=== PATIENT | male | born 1970 | race Caucasian/White ===

== ENCOUNTER 2016-10-10 06:03 | Inpatient (IN) | payer BC ==
--- NOTE | ~2016-10-10 | OP ---
Record Of Operation [facility] [address] [place]. [address] NAME: LINDY MOREIRA : 70 STATUS : ADM Mark PAT#: [id number] AGE: 46 ADM/REG DATE : 10/10/16 MR#: [id number] REPORT SERV DATE: 10/11/16 DICTATED BY: ADRIEL ABAD DATE: 10/11/16 REPORT STATUS : Draft TRANSCRIBED BY: MODL DATE: 10/11/16 DATE OF PROCEDURE: 10/10/2016 PROCEDURE: Pericardial drain insertion. INDICATION: Hypotension with early cardiac tamponade physiology on echocardiogram. PROCEDURE IN DETAIL: The patient was brought to the Cardiac Catheterization Lab in a fasting state. This was done urgently secondary to the patient's impending hemodynamic compromise. However, at the time of the procedure, he was hemodynamically stable. He was prepared in the usual fashion on the Cardiac Cath Table. The Anesthesia Service was present to provide monitored anesthesia care. Echocardiography was brought to the bedside. The subxiphoid region of the chest was thoroughly cleaned and then sterilely draped in the usual fashion. Lidocaine was used for local anesthesia. A small gelacio was made in the skin and then a needle was used to gain pericardial access caudally. A pericardial drain was then inserted using modified Seldinger technique under echocardiographic and fluoroscopic guidance. Great care was observed to make sure the wire was in the pericardium and not the right ventricle or some other vascular structure. Approximately 350 mL of dark blood was obtained after the drain was placed. The pericardial effusion diminished under real-time echocardiography. The patient's vital signs stabilized. The drain was secured with a single suture to the skin. It was then dressed in the usual fashion. CONCLUSION: Successful pericardial drain placement. [facility]/KINJAL Adriel Abad M.D. / [id number] CC: Adriel Abad M.D.
--- NOTE | ~2016-10-10 | CN ---
Consultation Report [facility] [address] [place]. [address] NAME: LINDY MOREIRA : 70 STATUS : ADM Mark PAT#: [id number] AGE: 46 ADM/REG DATE : 10/10/16 MR#: [id number] REPORT SERV DATE: 10/11/16 DICTATED BY: AVNI LUNA DATE: 10/10/16 REPORT STATUS : Draft TRANSCRIBED BY: MODL DATE: 10/10/16 NEPHROLOGY CONSULTATION DATE OF CONSULTATION: 10/10/2016 CHIEF COMPLAINT: Acute kidney insufficiency and hyperkalemia. HISTORY OF PRESENT ILLNESS: The patient is a 46-year-old white male with significant past medical history of PAF, hypertension, developed hypotension status post EPA. Echocardiogram showed pericardial effusion with early onset cardiac tamponade. He had a pressures dropped systolically 50s to 70s. Pericardial drain was placed. Blood was removed. He was given , systolic blood pressure down to 130s. Creatinine at baseline at the procedure was 1.17 increased to 1.84. Urine output is increasing with improving blood pressure and volume resuscitation. Creatinine is 1.17 to 1.84. PAST MEDICAL HISTORY/PAST SURGICAL HISTORY: As noted above. SOCIAL HISTORY: No recreational drugs or alcohol. FAMILY MEDICAL HISTORY: No known kidney disease. REVIEW OF SYSTEMS: Negative, otherwise stated in HPI. ALLERGIES: NO KNOWN DRUG ALLERGIES. CURRENT MEDICATIONS: Vitamin D, Rythmol, Prinivil, and Tylenol. PHYSICAL EXAMINATION: VITAL SIGNS: Systolic blood pressures in the 50s and 70s currently in the 130s, temperature is 97.7, pulse is 68. O2 sats 97% on 2 L nasal cannula oxygen. GENERAL: No apparent distress. Lying in bed, comfortably. SKIN: No petechiae or purpura. NECK: No JVP. Trachea is midline. CARDIOVASCULAR: Regular rate and rhythm. No gallops, rubs, or murmurs. RESPIRATORY: Clear to auscultation bilaterally. ABDOMEN: Soft, nontender, nondistended. Positive bowel sounds. EXTREMITIES: No peripheral edema. LABORATORY AND X-RAY DATA: Sodium is 144, potassium 5.4, chloride is 113, BUN is 17, creatinine is 1.84. Glucose is 108, white blood cell count 11.4, hemoglobin is 12.6, platelets are 204. Echocardiogram as mentioned in the HPI. Consultation Report [place] [id number] [place]. [facility] [address] NAME: LINDY MOREIRA : 70 STATUS : ADM Mark PAT#: [id number] AGE: 46 ADM/REG DATE : 10/10/16 MR#: [id number] REPORT SERV DATE: 10/11/16 DICTATED BY: AVNI LUNA DATE: 10/10/16 REPORT STATUS : Draft TRANSCRIBED BY: MODL DATE: 10/10/16 ASSESSMENT: 1. Atrial fibrillation status post EPA. 2. Pericardial effusion with hypotension-cardiac tamponade status post atrial fibrillation status post EPA. 3. Acute kidney insufficiency secondary to prerenal disease in setting of atrial fibrillation status post EPA and pericardial effusion with hypotension-cardiac tamponade status post atrial fibrillation status post EPA. 4. Mild hyperkalemia. PLAN: 1. IV fluids. 2. Martínez catheter. 3. Labs. 4. IV calcium. 5. Updated family at bedside. 6. Re-evaluate in a.mDebra MALCOLMG/MODL Avni Luna M.D. / [id number] CC: Adriel Abad M.D.
[~2016-10-10 06:03] MED LIST: ELIQUIS 5 MG TAB5 MG PO; PRIN20 PO; RYTHMOL SR425 MG PO; VITD PO; ZYRTEC ALLGY10 MG PO
[2016-10-10 06:42] LABS: BASOPHILS 0.6 %; BASOPHILS ABSOLUTE 0.04 10/3/uL (0.0-0.16); EOSINOPHILS ABSOLUTE 0.32 10/3/uL (0.0-0.53); HEMATOCRIT 39.7 % (40.0-51.0); HEMOGLOBIN 13.9 g/dL (13.6-17.8); IMMATURE GRANULOCYTES 0.5 %; IMMATURE GRANULOCYTES ABSOLUTE 0.03 10/3/uL (0.0-0.11); LYMPHOCYTES 24.9 %; LYMPHOCYTES ABSOLUTE 1.58 10/3/uL (0.67-4.30); MEAN CORPUSCULAR VOLUME 88.4 fL (80-100); MEAN PLATELET VOLUME 10.3 fL (9.2-13.0); MONOCYTES 12.9 %; MONOCYTES ABSOLUTE 0.82 10/3/uL (0.21-1.20); NEUTROPHILS 56.1 %; NEUTROPHILS ABSOLUTE 3.55 10/3/uL (2.02-8.40); PLATELET COUNT 208 10/3/uL (150-400); RBC DISTRIBUTION WIDTH 12.7 % (12.0-16.0); RED CELL COUNT 4.49 10/6/uL (4.7-6.1); WHITE BLOOD CELLS 6.3 10/3/uL (4.5-10.5)
[2016-10-10 06:43] LABS: MANUAL DIFF NO %
[2016-10-10 06:53] LABS: BUN (BLOOD UREA NITROGEN) 18 MG/DL (6-23); CALCIUM, SERUM 8.7 MG/DL (8.5-10.4); CHLORIDE, SERUM 106 MMOL/L (96-112); CO2 (CARBON DIOXIDE) 29 MMOL/L (24-34); CREATININE 1.17 MG/DL (0.70-1.30); GFR AFRICAN AMERICAN 86 ML/MIN (>=60); GFR NON AFRICAN AMERICAN 74 ML/MIN (>=60); GLUCOSE, SERUM 101 MG/DL (60-99); POTASSIUM, SERUM 4.3 MMOL/L (3.5-5.3); SODIUM, SERUM 143 MMOL/L (135-148)
[2016-10-10 12:39] LABS: BASOPHILS 0.2 %; BASOPHILS ABSOLUTE 0.02 10/3/uL (0.0-0.16); EOSINOPHILS 0.9 %; HEMOGLOBIN 12.6 g/dL (13.6-17.8); IMMATURE GRANULOCYTES 0.4 %; IMMATURE GRANULOCYTES ABSOLUTE 0.04 10/3/uL (0.0-0.11); LYMPHOCYTES 8.8 %; MANUAL DIFF NO %; MEAN CORPUS HGB CONC 34.1 g/dL (32.0-36.0); MEAN CORPUSCULAR HEMOGLOB 30.6 pg (26.0-34.0); MEAN CORPUSCULAR VOLUME 89.8 fL (80-100); MONOCYTES 4.9 %; MONOCYTES ABSOLUTE 0.56 10/3/uL (0.21-1.20); NEUTROPHILS 84.8 %; NEUTROPHILS ABSOLUTE 9.63 10/3/uL (2.02-8.40); PLATELET COUNT 204 10/3/uL (150-400); RBC DISTRIBUTION WIDTH 12.9 % (12.0-16.0); RED CELL COUNT 4.12 10/6/uL (4.7-6.1); WHITE BLOOD CELLS 11.4 10/3/uL (4.5-10.5)
[2016-10-10 12:47] LABS: PARTIAL THROMBO TIME 44.6 SEC (22.5-37.2)
[2016-10-10 12:51] LABS: BUN (BLOOD UREA NITROGEN) 15 MG/DL (6-23); CHLORIDE, SERUM 107 MMOL/L (96-112)
[2016-10-10 12:53] LABS: CALCIUM, SERUM 7.5 MG/DL (8.5-10.4); CO2 (CARBON DIOXIDE) 24 MMOL/L (24-34); CREATININE 1.74 MG/DL (0.70-1.30); GFR AFRICAN AMERICAN 53 ML/MIN (>=60); GFR NON AFRICAN AMERICAN 46 ML/MIN (>=60); GLUCOSE, SERUM 219 MG/DL (60-99); POTASSIUM, SERUM 6.1 MMOL/L (3.5-5.3); SODIUM, SERUM 136 MMOL/L (135-148)
[2016-10-10 15:29] LABS: ALLENS TEST Pos; BE (BASE EXCESS) -8.1 MEQ/L (0 +/- 2.5); CARBOXYHEMOGLOBIN 0.3 % (0-3); DEVICE NRB; HCO3 (ACTUAL BICARBONATE) 18.5 MEQ/L (23-27); HEMOBLOGIN CONTENT 13.6 G/DL (14-18); INSTRUMENT SERIAL # 35151; METHEMOGLOBIN 0.7 % (0-3); O2 CONTENT 17.7 VOL% (18-24); OPERATOR ID 35798; PCO2 (CO2 TENSION) 42 MMHG (35-45); PO2 (O2 TENSION) 83 MMHG (79-93); SAMPLE Arterial; pH 7.26 (7.37-7.43)
[2016-10-10 16:06] LABS: BUN (BLOOD UREA NITROGEN) 17 MG/DL (6-23); CALCIUM, SERUM 7.5 MG/DL (8.5-10.4); CHLORIDE, SERUM 113 MMOL/L (96-112); CO2 (CARBON DIOXIDE) 27 MMOL/L (24-34); CREATININE 1.84 MG/DL (0.70-1.30); GFR AFRICAN AMERICAN 50 ML/MIN (>=60); GFR NON AFRICAN AMERICAN 43 ML/MIN (>=60); POTASSIUM, SERUM 5.4 MMOL/L (3.5-5.3)
[2016-10-10 16:07] LABS: GLUCOSE, SERUM 108 MG/DL (60-99); SODIUM, SERUM 144 MMOL/L (135-148)
[2016-10-10 21:18] LABS: ALBUMIN 2.3 G/DL (3.5-5.0); CHLORIDE, SERUM 119 MMOL/L (96-112); GLUCOSE, SERUM 95 MG/DL (60-99); PHOSPHORUS, SERUM 1.7 MG/DL (2.5-4.5); SODIUM, SERUM 147 MMOL/L (135-148)
[2016-10-10 21:21] LABS: BUN (BLOOD UREA NITROGEN) 13 MG/DL (6-23); CO2 (CARBON DIOXIDE) 19 MMOL/L (24-34); POTASSIUM, SERUM 3.5 MMOL/L (3.5-5.3)
[2016-10-10 21:22] LABS: CALCIUM, SERUM 5.9 MG/DL (8.5-10.4); CREATININE 1.11 MG/DL (0.70-1.30); GFR AFRICAN AMERICAN 92 ML/MIN (>=60); GFR NON AFRICAN AMERICAN 79 ML/MIN (>=60)
[2016-10-11 04:57] LABS: BASOPHILS 0.2 %; BASOPHILS ABSOLUTE 0.02 10/3/uL (0.0-0.16); EOSINOPHILS 0.3 %; EOSINOPHILS ABSOLUTE 0.03 10/3/uL (0.0-0.53); HEMATOCRIT 35.2 % (40.0-51.0); HEMOGLOBIN 11.9 g/dL (13.6-17.8); IMMATURE GRANULOCYTES 0.5 %; IMMATURE GRANULOCYTES ABSOLUTE 0.05 10/3/uL (0.0-0.11); LYMPHOCYTES ABSOLUTE 0.98 10/3/uL (0.67-4.30); MEAN CORPUS HGB CONC 33.8 g/dL (32.0-36.0); MEAN CORPUSCULAR HEMOGLOB 31.1 pg (26.0-34.0); MEAN CORPUSCULAR VOLUME 91.9 fL (80-100); MEAN PLATELET VOLUME 10.3 fL (9.2-13.0); MONOCYTES 12.5 %; MONOCYTES ABSOLUTE 1.22 10/3/uL (0.21-1.20); NEUTROPHILS 76.5 %; NEUTROPHILS ABSOLUTE 7.46 10/3/uL (2.02-8.40); PLATELET COUNT 171 10/3/uL (150-400); RBC DISTRIBUTION WIDTH 12.8 % (12.0-16.0); RED CELL COUNT 3.83 10/6/uL (4.7-6.1); WHITE BLOOD CELLS 9.8 10/3/uL (4.5-10.5)
[2016-10-11 04:58] LABS: MANUAL DIFF NO %
[2016-10-11 05:07] LABS: INTERNATIONAL NORMAL RATI 1.2 UNITS (-); PROTIME (NOT ORD) 14.8 SEC (12.0-14.5)
[2016-10-11 05:17] LABS: BUN (BLOOD UREA NITROGEN) 16 MG/DL (6-23); CHLORIDE, SERUM 110 MMOL/L (96-112); CREATININE 1.16 MG/DL (0.70-1.30); GFR AFRICAN AMERICAN 87 ML/MIN (>=60); GFR NON AFRICAN AMERICAN 75 ML/MIN (>=60); GLUCOSE, SERUM 107 MG/DL (60-99); POTASSIUM, SERUM 4.2 MMOL/L (3.5-5.3); SODIUM, SERUM 144 MMOL/L (135-148)
[2016-10-11 05:20] LABS: ALBUMIN 3.1 G/DL (3.5-5.0); CALCIUM, SERUM 7.7 MG/DL (8.5-10.4); CO2 (CARBON DIOXIDE) 24 MMOL/L (24-34); PHOSPHORUS, SERUM 2.7 MG/DL (2.5-4.5)
[2016-10-12 05:59] LABS: BASOPHILS 0.2 %; BASOPHILS ABSOLUTE 0.02 10/3/uL (0.0-0.16); EOSINOPHILS 1.4 %; EOSINOPHILS ABSOLUTE 0.12 10/3/uL (0.0-0.53); HEMATOCRIT 34.9 % (40.0-51.0); IMMATURE GRANULOCYTES 0.5 %; IMMATURE GRANULOCYTES ABSOLUTE 0.04 10/3/uL (0.0-0.11); LYMPHOCYTES 14.9 %; LYMPHOCYTES ABSOLUTE 1.31 10/3/uL (0.67-4.30); MEAN CORPUS HGB CONC 34.4 g/dL (32.0-36.0); MEAN CORPUSCULAR HEMOGLOB 31.3 pg (26.0-34.0); MEAN CORPUSCULAR VOLUME 90.9 fL (80-100); MEAN PLATELET VOLUME 10.4 fL (9.2-13.0); MONOCYTES 12.8 %; MONOCYTES ABSOLUTE 1.13 10/3/uL (0.21-1.20); NEUTROPHILS 70.2 %; NEUTROPHILS ABSOLUTE 6.18 10/3/uL (2.02-8.40); PLATELET COUNT 159 10/3/uL (150-400); RBC DISTRIBUTION WIDTH 12.6 % (12.0-16.0); RED CELL COUNT 3.84 10/6/uL (4.7-6.1); WHITE BLOOD CELLS 8.8 10/3/uL (4.5-10.5)
[2016-10-12 06:05] LABS: INTERNATIONAL NORMAL RATI 1.2 UNITS (-); PROTIME (NOT ORD) 14.6 SEC (12.0-14.5)
[2016-10-12 06:06] LABS: MANUAL DIFF NO %
[2016-10-12 06:11] LABS: CALCIUM, SERUM 8.4 MG/DL (8.5-10.4); CHLORIDE, SERUM 105 MMOL/L (96-112); CO2 (CARBON DIOXIDE) 27 MMOL/L (24-34); CREATININE 0.91 MG/DL (0.70-1.30); GFR AFRICAN AMERICAN 117 ML/MIN (>=60); GFR NON AFRICAN AMERICAN 101 ML/MIN (>=60); GLUCOSE, SERUM 95 MG/DL (60-99); SODIUM, SERUM 141 MMOL/L (135-148)
[2016-10-12 06:12] LABS: BUN (BLOOD UREA NITROGEN) 11 MG/DL (6-23)
[2016-10-12] MEDS ORDERED: IBU600 PO (10:17)
== END 2016-10-12 11:37 | disposition home or self-care (01) | DRG 274 ==
LOC: CORLMH 06:03 → SSU1 06:16 → CCU 15:16 → 5NO 10-11 21:36
PROVIDERS: Internal Medicine Cardiovascular Disease
PROC: 4A023FZ Measurement of Cardiac Rhythm, Percutaneous Approach (ICD-10-PCS; principal; 2016-10-10)
PROC: 02583ZZ Destruction of Conduction Mechanism, Percutaneous Approach (ICD-10-PCS; 2016-10-10)
PROC: 4A0234Z Measurement of Cardiac Electrical Activity, Percutaneous Approach (ICD-10-PCS; 2016-10-10)
PROC: 02K83ZZ Map Conduction Mechanism, Percutaneous Approach (ICD-10-PCS; 2016-10-10)
PROC: 0W9D30Z Drainage of Pericardial Cavity with Drainage Device, Percutaneous Approach (ICD-10-PCS; 2016-10-10)
DX: I48.0 Paroxysmal atrial fibrillation (principal); I31.4 Cardiac tamponade; N17.9 Acute kidney failure, unspecified; I31.3 Pericardial effusion (noninflammatory); E87.5 Hyperkalemia; N18.2 Chronic kidney disease, stage 2 (mild); I95.81 Postprocedural hypotension
CPT/HCPCS: 33010; 36600; 80048; 80069; 82330; 82805; 82962; 83735; 85025; 85347; 85610; 85730; 87641; 92950; 93005; 93308; 93613; 93656; 93662; A9270-GY; C1732; C1759; C1769; C1781; C1894; C8929; J0583; J2250; J2405; J3010; Q9957

== ENCOUNTER 2016-11-02 11:12 | Observation (INO) | payer BC ==
[~2016-11-02 11:12] MED LIST changes: +IBU600 PO
[2016-11-02 11:59] LABS: BASOPHILS 0.6 %; BASOPHILS ABSOLUTE 0.04 10/3/uL (0.0-0.16); EOSINOPHILS 2.4 %; EOSINOPHILS ABSOLUTE 0.17 10/3/uL (0.0-0.53); HEMATOCRIT 40.6 % (40.0-51.0); HEMOGLOBIN 13.7 g/dL (13.6-17.8); IMMATURE GRANULOCYTES 0.3 %; IMMATURE GRANULOCYTES ABSOLUTE 0.02 10/3/uL (0.0-0.11); LYMPHOCYTES 17.9 %; LYMPHOCYTES ABSOLUTE 1.28 10/3/uL (0.67-4.30); MANUAL DIFF NO %; MEAN CORPUS HGB CONC 33.7 g/dL (32.0-36.0); MEAN CORPUSCULAR HEMOGLOB 30.5 pg (26.0-34.0); MEAN CORPUSCULAR VOLUME 90.4 fL (80-100); MEAN PLATELET VOLUME 10.5 fL (9.2-13.0); MONOCYTES ABSOLUTE 0.72 10/3/uL (0.21-1.20); NEUTROPHILS 68.8 %; NEUTROPHILS ABSOLUTE 4.94 10/3/uL (2.02-8.40); PLATELET COUNT 253 10/3/uL (150-400); RBC DISTRIBUTION WIDTH 12.8 % (12.0-16.0); RED CELL COUNT 4.49 10/6/uL (4.7-6.1); WHITE BLOOD CELLS 7.2 10/3/uL (4.5-10.5)
[2016-11-02] MEDS ORDERED: LAN25 PO (12:03)
[2016-11-02] MEDS ORDERED: LOP50 PO (12:03)
[2016-11-02 12:11] LABS: CALCIUM, SERUM 9.1 MG/DL (8.5-10.4); CHLORIDE, SERUM 108 MMOL/L (96-112); CO2 (CARBON DIOXIDE) 29 MMOL/L (24-34); CREATININE 1.28 MG/DL (0.70-1.30); GFR AFRICAN AMERICAN 77 ML/MIN (>=60); GFR NON AFRICAN AMERICAN 67 ML/MIN (>=60); GLUCOSE, SERUM 112 MG/DL (60-99); POTASSIUM, SERUM 4.7 MMOL/L (3.5-5.3); SODIUM, SERUM 141 MMOL/L (135-148)
[2016-11-02 12:12] LABS: BUN (BLOOD UREA NITROGEN) 17 MG/DL (6-23)
== END 2016-11-03 11:05 | disposition home or self-care (01) ==
LOC: CORLMH 11:12 → SSU1 11:23 → SSU2 11-03 10:53 → SSU1 11-03 10:54
PROVIDERS: Internal Medicine Cardiovascular Disease
DX: I48.3 Typical atrial flutter (principal); I48.0 Paroxysmal atrial fibrillation; E66.9 Obesity, unspecified; I10 Essential (primary) hypertension; Z79.899 Other long term (current) drug therapy; Z98.890 Other specified postprocedural states
CPT/HCPCS: 80048; 82962; 85025; 85347; 85730; 93005; 93613; 93621; 93653; 93662; A9270-GY; C1732; C1733; C1759; C1769; C1781; C1893; C1894; G0378; J0690; J2370; J3010